=== PATIENT | male | born 1960 | race Caucasian/White ===

== ENCOUNTER 2024-07-29 08:10 | Outpatient (CLI) | payer OTHER, SELFPAY ==
--- NOTE | 2024-07-29 08:17 | MR_ITS ---
WS: [id number] MRI BRAIN WITH HIGH-RESOLUTION IMAGING THROUGH THE INTERNAL AUDITORY CANALS WITHOUT AND WITH CONTRAST HISTORY: MIXED CONDUCTIVE SENSORINEURAL HEARING LOSS COMPARISON: None available. TECHNIQUE: Multiplanar, multisequence imaging is performed through the brain. Additional 3 mm imaging performed in multiple planes through the internal auditory canal. Postcontrast imaging with 20 ml's of MultiHance. No acute intracranial hemorrhage, midline shift, edema or mass effect. Foci of hemosiderin in the LEFT cerebellum and LEFT frontal lobe cortex. No acute edema. No acute inf arcts. There are a few scattered T2 and FLAIR signal hyperintensity surrounding the ventricles. No la rge territory infarct. Posterior fossa is normal. No ischemic disease in the denice. Normal hippocampal formations. Ventricles and extra-axial spaces are normal. No inferior displacement of cerebellar tonsils. Clivus and pituitary gland are normal. Internal and external auditory canals: No mass or mass effect. Cranial nerves VII and VIII complexes: Subtle area of linear enhancement along the LEFT vestibulococh lear nerve complex in the proximal IAC. Enhancement is noted on several of the sequences. Similar fin ding but to a lesser extent is noted on the RIGHT. Additional linear enhancement towards the IAC fund us near the tympanic segment of the facial nerve on the LEFT. There is additional mild prominence of the LEFT endolymphatic sac. May be normal variant. Cerebellopontine angles: Normal. Paranasal sinuses: Normal. Mastoid air cells: Normal. Calvarium and scalp: Normal. Visualized [place] and dural venous sinuses demonstrate no abnormality. MR/MR iac's wo/w con* [id number] IMPRESSION: 1. Subtle area of linear enhancement along the LEFT vestibular cochlear nerve complex in the proximal IAC with extension to the fundus. Similar findings but to a lesser extent on the RIGHT. No mass is identified. 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 There is also more focal enhancement of the facial nerve near the IAC fundus. 2. No mass at the cerebellopontine angles. 3. Foci of hemosiderin, chronic. Hemosiderin deposits in the LEFT cerebellum a nd LEFT frontal lobe.
[2024-07-29] MEDS: gadobenate dimeglumine 20 mL vial IV (09:59)
== END 2024-07-29 08:11 | disposition home or self-care (01) ==
LOC: RAD 08:14
PROVIDERS: Family Provider Family Medicine; PCP Nurse Practitioner Family; Visit Provider Specialist
DX: G93.89 Other specified disorders of brain (principal); H90.8 Mixed conductive and sensorineural hearing loss, unspecified; H90.5 Unspecified sensorineural hearing loss
CPT/HCPCS: 70553